=== PATIENT | male | born 1995 ===

== ENCOUNTER 2018-07-29 13:07 | Emergency (ER) | payer OTHER ==
--- NOTE | 2018-07-29 14:07 | UC ---
General HPI - HPI Summary HPI Summary: stepped in a hole last pm and rolled R ankle. ongoing pain/swelling - History of Current Complaint Chief Complaint: UCGeneralIllness Stated Complaint: RIGHT ANKLE INJURY Time Seen by Provider: 07/29/18 14:00 Hx Obtained From: Patient Onset/Duration: Sudden Onset Timing: Constant Pain Intensity: 8 Aggravating: walking Associated Signs & Symptoms: Positive: Edema. Negative: Fever - Allergy/Home Medications Allergies/Adverse Reactions: Allergies Allergy/AdvReac Type Severity Reaction Status Date / Time Sulfa (Sulfonamide Allergy Rash Verified 07/29/18 13:50 Antibiotics) Home Medications: Home Medications Acetaminophen [Tylenol] 2 tab PO ONCE 07/29/18 [History Confirmed 07/29/18] PMH/Surg Hx/FS Hx/Imm Hx Previously Healthy: Yes - Surgical History Surgical History: None - Family History Known Family History: Positive: Non-Contributory - Social History Alcohol Use: None Substance Use Type: None Smoking Status (MU): Never Smoked Tobacco Review of Systems All Other Systems Reviewed And Are Negative: No Constitutional: Negative: Fever Musculoskeletal: Negative: Decreased ROM Neurological: Negative: Weakness, Paresthesia, Numbness Physical Exam Triage Information Reviewed: Yes Appearance: Well-Appearing Vital Signs: Initial Vital Signs Temp 98.1 F 07/29/18 13:45 Pulse 68 07/29/18 13:45 Resp 18 07/29/18 13:45 BP 154/96 07/29/18 13:45 Pulse Ox 100 07/29/18 13:45 Vital Signs Reviewed: Yes Respiratory: Positive: No respiratory distress Cardiovascular: Positive: RRR Musculoskeletal: Positive: Other: - RLE: hip and knee are non tender. achilles is non tender and intact. ankle has moderate swelling and lateral tenderness. foot is non tender and has full s/v/m function. Neurological: Positive: Alert Psychological: Positive: Age Appropriate Behavior Skin Exam: Normal Skin: Negative: Rashes Diagnostics - Radiology No standard instances Radiology Interpretation Completed By: Radiologist - IMPRESSION: Soft tissue swelling laterally without fracture. Course/Dx - Course Course Of Treatment: Repeat BP improved and BP is visit related. - Differential Dx - Multi-Symptom Differential Diagnoses: Other - NO CONCERN FOR INFECTION, NO FX/DISLOCATION ON XRAY. - Diagnoses Provider Diagnosis: Right ankle sprain Discharge - Sign-Out/Discharge Documenting (check all that apply): Patient Departure All imaging exams completed and their final reports reviewed: Yes - Discharge Plan Condition: Stable Disposition: HOME Patient Education Materials: Ankle Sprain (ED), Ankle Stirrup Splint (ED) Forms: *Work Release Referrals: Lawrence Keller MD [Medical Doctor] - 3 Days Additional Instructions: USE YOUR CRUTCHES AT HOME. - Billing Disposition and Condition Condition: STABLE Disposition: Home
[2018-07-29 14:12] VITALS: BP 135/93
== END 2018-07-29 15:00 | disposition home or self-care (01) ==
LOC: UCCORT 13:07
DX: S93.401A Sprain of unspecified ligament of right ankle, initial encounter (principal); X50.9XXA Other and unspecified overexertion or strenuous movements or postures, initial encounter
CPT/HCPCS: 99213; G0463